=== PATIENT | female | born 1980 | race Caucasian/White ===

== ENCOUNTER 2018-05-28 08:00 | Inpatient (IN) ==
[2018-05-28] MEDS ORDERED: Ondansetron 4 MG/2 ML VIAL IVP PRN (09:22)
[2018-05-28] MEDS ORDERED: *HR* Nalbuphine 10 MG/ML AMPUL IVP PRN (09:22)
[2018-05-28] MEDS ORDERED: Naloxone 0.4 MG/ML INJ IVP PRN (09:22)
[2018-05-28] MEDS ORDERED: Famotidine 20 MG/2 ML VIAL IVP PRN (09:22)
[2018-05-28] MEDS ORDERED: Metoclopramide 10 MG/2 ML VIAL IVP PRN (09:22)
[2018-05-28] MEDS ORDERED: Ringers Solution, Lactated 1,000 ML IVC SCH (09:30)
[2018-05-28] MEDS: miSOPROStol 25 MCG TABLET PO PRN ×2 (09:45→14:10)
[2018-05-28 10:18] LABS: Basophils % 0.2 %; Eosinophils # 0.1 K/mcL (0.0-0.6); Eosinophils % 1.1 %; Hematocrit 34.2 % (35.3-44.9); Hemoglobin 11.4 g/dL (11.5-15.4); Immature Granulocytes % 0.9 % (0-4); Lymphocytes # 1.9 K/mcL (0.6-4.6); Lymphocytes % 18.9 %; Mean Corpuscular HGB Conc 33.3 g/dL (31.6-35.5); Mean Corpuscular Hemoglobin 28.9 pg (28.0-33.3); Mean Corpuscular Volume 86.8 fL (83.0-100.0); Mean Platelet Volume 11.6 fL (9.4-12.4); Monocytes # 0.5 K/mcL (0.0-1.3); Monocytes % 5.2 %; Neutrophils # 7.5 K/mcL (1.6-8.9); Platelet Count 224 K/mcL (140-400); Red Blood Count 3.94 M/mcL (3.82-4.97); Red Cell Distribution Width 13.3 % (11.5-14.5); Segmented Neutrophils % 73.7 %
[2018-05-28 10:40] LABS: Alanine Aminotransferase 6 Units/L (7-52); Aspartate Amino Transferase 9 Units/L (13-39); BUN/Creatinine Ratio 16 (6-26); Blood Urea Nitrogen 7 mg/dL (6-20); Lactate Dehydrogenase 112 Units/L (140-271); Uric Acid 5.7 mg/dL (2.3-7.6); eGFR For Non-African Americans > 60 (> 60)
[2018-05-28 11:06] LABS: Amphetamine Screen,Urine Negative ng/mL (Cutoff=1000); Barbiturate Screen,Urine Negative ng/mL (Cutoff=200); Benzodiazepines Screen,Urine Negative ng/mL (Cutoff=200); Cannabinoid Screen,Urine Negative ng/mL (Cutoff = 50); Cocaine Screen,Urine Negative ng/mL (Cutoff= 300); Opiate Screen,Urine Negative ng/mL (Cutoff=300); Phencyclidine Screen,Urine Negative ng/mL (Cutoff=25)
[2018-05-28 11:15] LABS: Protein/Creatinine Ratio,Urine 0.15 mg/mg (0.00-0.20)
--- NOTE | 2018-05-28 12:05 | Anesthesia Evaluation PreOp ---
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: Denies Any Significant HX Other Medical History: Denies Any Significant HX : Yes (, 37 weeks) Alcohol Use: none Drug use: none Medications and Allergies Labetalol [Trandate] 200 mg PO TID 05/28/18 [History] NIFEdipine XL (24 HR) [Procardia XL] 30 mg PO DAILY 05/28/18 [History] Vits96/Iron Fum/Folic [ Tablet] 1 each PO 05/28/18 [History] Allergy/AdvReac Type Severity Reaction Status Date / Time No Known Allergies Allergy Verified 12/02/17 13:14 - Meds/Allergy Pre-op Review Medications Reviewed: Yes Allergies Reviewed: Yes Beta Blockers on Current Med List: No Anesthesia Results - Labs 05/28/18 09:50 05/28/18 09:50 Anesthesia Exam O2 Sat Height 1.7 m Height 1.7 m Weight 166 kg Weight 166 kg Height: 67 Weight: 365lbs - HEENT Pupil (Motor): Pupils equal Mallampati: I Teeth: Normal Oral Opening: Greater than 3 - CONSUMER AFFAIRS SPECIALIST LOC: Oriented CONSUMER AFFAIRS SPECIALIST Motor: Normal RUE, Normal LUE, Normal RLE, Normal LLE, Normal Face CONSUMER AFFAIRS SPECIALIST Sensory: Normal: RUE, LUE, RLE, LLE, Face - Cardiac Rhythm: Regular Murmur: None JVD: No Carotid Bruit: No - Pulmonary Breath Sounds: bilateral Clear Respiratory Effort: Symmetrical Anesthesia Assess/Plan ASA Score: 2 Level of consciousness: Cooperative Anesthetic Plan: Epidural Monitoring Plan: Standard Monitors
[2018-05-28] MEDS ORDERED: Oxytocin 20 units/ LR 1000 mL 20 UNIT/1,000 ML BAG IVC SCH (18:15)
[2018-05-28] MEDS ORDERED: Epidural Premix (fent/bupiv) 110 ML EP ONE (18:34)
[2018-05-28] MEDS ORDERED: *HR* FentaNYL (PF) 100 MCG/2 ML VIAL ONE (18:34)
[2018-05-28] MEDS ORDERED: *HR* Ropivacaine/PF 0.2% 20 ML VIAL ONE ×2 (18:35→23:28)
[2018-05-28] MEDS ORDERED: Lidocaine -MPF 1% 5 ML AMPUL ONE (18:35)
--- NOTE | 2018-05-28 19:02 | OB Labor Progress Note ---
Date of Encounter: 05/28/18 Time of Encounter: 16:10 Labor Progress Note - Subjective Subjective: Pt getting more uncomfotable. - Cervix Cervix: 70/-2 - Heart Tones Heart Tones: RNST - Wayne Wayne: UC's 1 2-3 min. - Interventions Interventions: AROM clear, - Plan Plan: Expect .
--- NOTE | 2018-05-28 19:11 | OB/GYN History & Physical ---
Date of Encounter: 05/28/18 Time of Encounter: 19:08 Assessment and Plan (1) 37 weeks gestation of Current visit: Yes Status: Acute Pt at 37 weeeks gestation presents for induction of labor. She has chronic hypertension and obesity. [facility] MFM has advised delivery at 37 weeks gestation. (2) Chronic hypertension Current visit: Yes Status: Acute History of Present Illness Chief complaint: Here for induction of labor, chronic hypertension HPI: Ms. Willard is a 38 year old female female with chronic hypertension and increased BMI presents at 37 weeks EGA for induction of labor per recommendation of MFM. has been otherwise uncomplicated.She has had good PNC with good growth scans and had normal glucose testing. Past Med Surg Social Fam HX - Past Medical History Medical history: no medical history Psychiatric history: no psych history - Past Surgical History Surgical History: no surgical history - Social History Smoking Status: Former smoker Smokeless Tobacco Status: No Alcohol use: none Drug use: none - Family History Mother Hx Family Endocrine Disorder: Yes (THYROID) Obstetrical History - Pregnancies : 3 Medications and Allergies Labetalol [Trandate] 200 mg PO TID 05/28/18 [History] NIFEdipine XL (24 HR) [Procardia XL] 30 mg PO DAILY 05/28/18 [History] Vits96/Iron Fum/Folic [ Tablet] 1 each PO 05/28/18 [History] Allergy/AdvReac Type Severity Reaction Status Date / Time No Known Allergies Allergy Verified 12/02/17 13:14 Exam - Constitutional Constitutional: well developed, no acute distress - HEENT HEENT: EOMI, PERRL - Neck Neck exam: full ROM - Lungs Respiratory exam: stridor - Cardiovascular Cardiovascular exam: RRR - Abdomen Abdomen: Present: gravid - Extremities Extremities exam: full ROM Deep Tendon Reflex Grade: 2+ Normal - Cervix Dilation: 3 Effacement: 70 Results Result Diagrams: 05/28/18 09:50 05/28/18 09:50 Abnormal lab results Hgb 11.4 g/dL (11.5-15.4) L 05/28/18 09:50 Hct 34.2 % (35.3-44.9) L 05/28/18 09:50 Creatinine 0.45 mg/dL (0.60-1.20) L 05/28/18 09:50 AST 9 Units/L (13-39) L 05/28/18 09:50 ALT 6 Units/L (7-52) L 05/28/18 09:50 Lactate Dehydrogenase 112 Units/L (140-271) L 05/28/18 09:50 Urine Total Protein 39 mg/dL (1-14) H 05/28/18 09:50 All other labs normal. - VTE Reasons for not Prescribing Prophylaxis: Treatment not Indicated - Low risk for VTE
--- NOTE | 2018-05-28 19:23 | Anesthesia Procedures ---
Addendum entered and electronically signed by Trey Vogel CRNA 05/28/18 19:24: procedure start time 1849 procedure end time 1924 Original Note: Date of Encounter: 05/28/18 Time of Encounter: 19:21 Procedures: Anesthesia - Epidural/Spinal Patient ID/Chart reviewed: Yes Patient examined: Yes OB Eval: Contractions: Non-stressed pattern Consent Obtained: Yes Supplemental Oxygen: None/Room Air Site Prep: Aseptic Technique Patient position: upright Local Anesthetic: Lidocaine 1% Amount of Local Anesthetic used: 3 Touhy Needle Gauge: 18 Touhy Needle Depth (cm): 9 Catheter Depth at Skin (cm): 15 Test Dose (1.5% Lido + Epi): Volume given (mls): 3 Test Dose Result: Negative Loading Dose: Fentanyl (mcg): 100 Loading Dose: Other: 5cc 0.2% ropivicaine Loading Dose Administered: Thru Touhy Needle Infusion Med: 0.125% Bupivacaine w/ 2 mcg/ml Fentanyl Infusion Rate (mls/hr): [address]: Tegaderm Interspace Used: L3-L4 Loss of Resistance (ELISABETH): Yes Blood: No CSF: No Paresthesia: No
[2018-05-28] MEDS ORDERED: Epidural Premix (fent/bupiv) 110 ML EP SCH (19:30)
--- NOTE | 2018-05-28 23:39 | Anesthesia Progress Note ---
Date of Encounter: 05/28/18 Time of Encounter: 23:36 Anesthesia Note - Note Note: 05/28/18 23:36 called to bedside for pain with contractions 8/10. Bolus 0.2% ropivicaine and gtt increased to 17cc/hr. dressing over catheter loose and catheter was out to 11cm at skin. Back dried with sterile 4x4s and sterile dressing reapplied.
--- NOTE | 2018-05-29 01:37 | OB/GYN Procedure Note ---
Delivery - Delivery Date: 05/29/18 Provider: Bryant Coleman Delivery induction: misoprostol Delivery monitor: internal FHT, internal uterine Anesthesia: epidural Quantitated Blood Loss: 400 - (s) Infant A Delivery Date: 05/29/18 Presentation: vertex Position: NITA Route of delivery: Gender: Female Viability: Viable Pounds: 7 Ounces: 10 at 1 minute: 8 at 5 mins: 8 Shoulder Dystocia: not encountered Cord: 3 umbilical vessels, delivered through nuchal - Repair Episiotomy: none Laceration Description: None - Complications Delivery complications: none - Disposition Mom disposition: stable in LDR disposition: stable in LDR - Comments Comments: Pt s/p of liveborn female from NITA presentation 7lb10 oz with APGARS 8 at one min and 8 at 5 min. Delivery was over intact perineum. Cord did evulse during delivery of the placenta, I was able to grasp the edge of the placenta and with gentle traction the placenta was delivered. Examination of the placenta showed it to be complete. After delivery of the placenta palpation of internal uterus showed Mirena IUD to be within uterine cavity and it was removed without difficulty.
[2018-05-29] MEDS ORDERED: *HR* Labetalol 20 MG/4 ML SYRINGE IVP ONE (02:09)
[2018-05-29] MEDS: *HR* Labetalol 20 MG/4 ML SYRINGE IVP ONE ×2 (02:14→02:15)
[2018-05-29] MEDS ORDERED: Benzocaine/Menthol 56 GM AEROSOL SPRAY TP PRN (03:50)
[2018-05-29] MEDS ORDERED: Oxytocin 20 units/ LR 1000 mL 20 UNIT/1,000 ML BAG IVC SCH (03:50)
[2018-05-29] MEDS ORDERED: Acetaminophen 325 MG TABLET PO PRN (03:50)
[2018-05-29] MEDS: Ibuprofen 600 MG TABLET PO PRN ×3 (05:19→20:03)
[2018-05-29 07:48] LABS: Basophils % 0.2 %; Hematocrit 28.2 % (35.3-44.9); Immature Granulocytes % 0.6 % (0-4); Lymphocytes # 1.7 K/mcL (0.6-4.6); Lymphocytes % 9.8 %; Mean Corpuscular HGB Conc 34.8 g/dL (31.6-35.5); Mean Corpuscular Hemoglobin 29.4 pg (28.0-33.3); Mean Corpuscular Volume 84.7 fL (83.0-100.0); Mean Platelet Volume 11.3 fL (9.4-12.4); Monocytes # 0.9 K/mcL (0.0-1.3); Monocytes % 5.1 %; Neutrophils # 14.4 K/mcL (1.6-8.9); Platelet Count 230 K/mcL (140-400); Red Blood Count 3.33 M/mcL (3.82-4.97); Red Cell Distribution Width 13.2 % (11.5-14.5); Segmented Neutrophils % 84.3 %
[2018-05-29 07:54] LABS: Hemoglobin 9.8 g/dL (11.5-15.4)
[2018-05-29] MEDS: Prenatal Vit/FA 1 EACH TABLET PO SCH (08:12)
[2018-05-29] MEDS ORDERED: NIFEdipine XL (24 HR) 30 MG TAB.ER.24 PO SCH ×2 (09:00)
[2018-05-29] MEDS ORDERED: Preparation H Ointment 30 GM TUBE TP PRN (11:33)
[2018-05-30 08:14] VITALS: BP 136/87
[2018-05-30] MEDS: Ibuprofen 600 MG TABLET PO PRN (08:23)
[2018-05-30] MEDS: Prenatal Vit/FA 1 EACH TABLET PO SCH (08:24)
--- NOTE | 2018-05-30 10:35 | Discharge Summary ---
Date of Encounter: 05/30/18 Time of Encounter: 10:32 - Discharge Diagnosis (1) Status post vaginal delivery Priority: Primary Status: Acute Comments: Patient meeting day one milestones. Pain well-controlled with prescribed medications. Voiding without difficulty, tolerating regular diet. No bowel movement yet, bleeding moderate. Anticipate discharge today (2) anemia Priority: Secondary Status: Acute Comments: Continue vitamins on discharge. Patient is asymptomatic with a hemoglobin of 9.8, vitals within normal limits (3) Nexplanon insertion Priority: Secondary Status: Acute Comments: Patient desires a Nexplanon insertion for contraception prior to discharge from hospital (4) Encounter for surveillance of other contraceptives Priority: Secondary Status: Acute Comments: Patient desires contraception prior to discharge from hospital with Nexplanon (5) Chronic hypertension Priority: Secondary Status: Acute Comments: Continue on Procardia XL and labetalol. Prescriptions to be sent to pharmacy. - Discharge Medications Prescriptions: Ibuprofen [Motrin] 600 mg PO Q6H PRN #60 tablet PRN Reason: Cramping Labetalol [Trandate] 200 mg PO TID #90 tablet NIFEdipine XL (24 HR) [Procardia XL] 30 mg PO DAILY #30 tab.er.24 Home Medications: Vits96/Iron Fum/Folic [ Tablet] 1 each PO 05/28/18 [History] Acetaminophen [Tylenol] 650 mg PO Q6H PRN tablet 05/30/18 [Rx] Benzocaine/Menthol Spraggs [Dermoplast Spraggs] 1 appl TP QID PRN aerosol 05/30/18 [Rx] Docusate [Colace] 100 mg PO BID capsule 05/30/18 [Rx] Ibuprofen [Motrin] 600 mg PO Q6H PRN #60 tablet 05/30/18 [Rx] Labetalol [Trandate] 200 mg PO TID #90 tablet 05/30/18 [Rx] NIFEdipine XL (24 HR) [Procardia XL] 30 mg PO DAILY #30 tab.er.24 05/30/18 [Rx] Allergies/Adverse Reactions: Allergy/AdvReac Type Severity Reaction Status Date / Time No Known Allergies Allergy Verified 12/02/17 13:14 Data Procedures and tests throughout hospitalization: Laboratory Tests 05/28/18 05/28/18 05/28/18 09:50 09:50 09:50 WBC 10.2 RBC 3.94 Hgb 11.4 L Hct 34.2 L MCV 86.8 MCH 28.9 MCHC 33.3 RDW 13.3 Plt Count 224 MPV 11.6 Immature Gran % 0.9 Seg Neutrophils % 73.7 Lymphocytes % 18.9 Monocytes % 5.2 Eosinophils % 1.1 Basophils % 0.2 Neutrophils # 7.5 Lymphocytes # 1.9 Monocytes # 0.5 Eosinophils # 0.1 Basophils # 0.0 BUN 7 Creatinine 0.45 L Est GFR ( Amer) > 60 Est GFR (Non-Af Amer) > 60 BUN/Creatinine Ratio 16 Uric Acid 5.7 AST 9 L ALT 6 L Lactate Dehydrogenase 112 L Urine Creatinine Protein/Creatinin Ratio Urine Total Protein Urine Opiates Screen Negative Ur Barbiturates Screen Negative Ur Phencyclidine Scrn Negative Ur Amphetamines Screen Negative U Benzodiazepines Scrn Negative Urine Cocaine Screen Negative U Marijuana (THC) Screen Negative Ur Drug Screen Interp See Below 05/28/18 05/29/18 09:50 07:26 WBC 17.1 H D RBC 3.33 L Hgb 9.8 L D Hct 28.2 L MCV 84.7 MCH 29.4 MCHC 34.8 RDW 13.2 Plt Count 230 MPV 11.3 Immature Gran % 0.6 Seg Neutrophils % 84.3 Lymphocytes % 9.8 Monocytes % 5.1 Eosinophils % 0.0 Basophils % 0.2 Neutrophils # 14.4 H Lymphocytes # 1.7 Monocytes # 0.9 Eosinophils # 0.0 Basophils # 0.0 BUN Creatinine Est GFR ( Amer) Est GFR (Non-Af Amer) BUN/Creatinine Ratio Uric Acid AST ALT Lactate Dehydrogenase Urine Creatinine 254 Protein/Creatinin Ratio 0.15 Urine Total Protein 39 H Urine Opiates Screen Ur Barbiturates Screen Ur Phencyclidine Scrn Ur Amphetamines Screen U Benzodiazepines Scrn Urine Cocaine Screen U Marijuana (THC) Screen Ur Drug Screen Interp Date of admission: 05/28/18 08:06 Primary care physician: Renea Schultz, Discharging clinician: Madai Coulter Anticipated date of discharge: 05/30/18 - Patient Status Disposition: Home, Self-Care Condition: Good Functional capacity at discharge: independent ambulation Overall status at discharge: patient is progressing back to baseline - Discharge Instructions Follow Up With: Renea Schultz, HHA [Primary Care Provider] - - Diet and Activity Activity: resume usual activities as tolerated Diet: regular diet Hospital Course Reason for admission: induction of labor Delivery: Episiotomy: none Laceration: none Other procedures: other (Nexplanon insertion) complications: none Discharge diagnosis: IUP at term delivered baby: female Hospital course: Delivery Date: 05/29/18 Provider: Bryant Coleman Delivery induction: misoprostol Delivery monitor: internal FHT, internal uterine Anesthesia: epidural Quantitated Blood Loss: 400 - Infant (s) Infant A Infant Delivery Date: 05/29/18 Presentation: vertex Position: NITA Route of delivery: Gender: Female Viability: Viable Pounds: 7 Ounces: 10 at 1 minute: 8 at 5 mins: 8 Shoulder Dystocia: not encountered Cord: 3 umbilical vessels, delivered through nuchal - Repair Episiotomy: none Laceration Description: None - Complications Delivery complications: none - Disposition Mom disposition: stable in LDR disposition: stable in LDR - Comments Comments: Pt s/p of liveborn female from NITA presentation 7lb10 oz with APGARS 8 at one min and 8 at 5 min. Delivery was over intact perineum. Cord did evulse during delivery of the placenta, I was able to grasp the edge of the placenta and with gentle traction the placenta was delivered. Examination of the placenta showed it to be complete. After delivery of the placenta palpation of internal uterus showed Mirena IUD to be within uterine cavity and it was removed without difficulty. Time Attestation: Total time spent providing and/or coordinating discharge services: Time Spent: Less than 30 minutes Exam - Constitutional Vitals: Temp Pulse Resp BP Pulse Ox 98 F 77 14 136/87 96 05/30/18 08:13 05/30/18 08:13 05/30/18 08:13 05/30/18 08:13 05/30/18 08:13 General appearance IM: A&O X 3, pleasant, no acute distress - Respiratory Respiratory exam: Present: CTAB - Cardiovascular Cardiovascular exam IM: Present: RRR, +S1, +S2 - GI/Abdominal GI/Abdominal exam IM: normal bowel sounds, soft - Rectal Rectal exam: deferred - External exam: normal external exam Uterine Tone: Firm Uterus Position: At Umbilicus, Right of Midline - Extremities Exam Extremities exam IM: Present: full ROM, normal capillary refill, normal inspection, pedal edema, warm - Neurological Exam Neurological exam: alert, normal gait, oriented X3
[2018-05-30] MEDS ORDERED: Etonogestrel 68 MG IMPLANT IL ONE (10:46)
[2018-05-30] MEDS ORDERED: Lidocaine/EPI 1:100k 1% 30 ML VIAL INFILT ONE (10:47)
[2018-05-30] MEDS ORDERED: Lidocaine/EPI 1:100k 1% 30 ML VIAL ONE (11:04)
--- NOTE | 2018-05-30 11:31 | OB/GYN Procedure Note ---
OB-DRIVER COURIER: Procedure - Diagnosis Date of procedure: 05/30/18 Pre-op diagnosis: Desires contraception Post-op diagnosis: same - Procedure Procedure: Nexplanon insertion Surgeon: Madai Coulter Was there an certified surgical first assistant present: No Anesthesia provider: Madai Coulter Anesthesia Type: Local Disposition: no change Narrative: Patient desires Nexplanon for control and would like to have it placed prior to discharge. Examination: Informed consent was obtained and time out performed. Patient was placed in supine position with left arm in the appropriate position. Betadine was used to prep the arm in sterile fashion. 1% Lidocaine was used for anesthesia. The Nex planon was inserted in the subcutaneous tissue to the appropriate length then the Nexplanon was released. Both myself and the patient can palpate the blade without difficulty. Pressure dressing was applied. Patient tolerate the procedure well. Patient was instructed on wound care and is to follow up as needed. Patient educated on back up control for 30 days. Procedure: Correct patient, procedure, and site were verified and time out performed per policy. Therapeutic Injections: 3 mL of Lidocaine given at site of insertion by Padmini Coulter CNM
== END 2018-05-30 12:06 | disposition home or self-care (01) | DRG 807 ==
LOC: 1NENULAB 08:06 → 1NENUOBS 05-29 03:35
PROVIDERS: ADMIT Obstetrics & Gynecology; ATTEND Obstetrics & Gynecology